=== PATIENT | female | born 1955 | race Caucasian/White ===

== ENCOUNTER → 2024-05-21 | Outpatient (CLI) | payer MEDICARE, BC, SELFPAY ==
[2024-05-21 15:45] LABS: Free T4 (Free Thyroxine) 1.25 ng/dL (0.89-1.76); Thyroid Stimulating Hormone 3.23 uIU/mL (0.55-4.78)
== END | disposition home or self-care (01) ==
LOC: COPL 14:24
PROVIDERS: PCP Family Medicine; Referring Provider Family Medicine; Visit Provider Family Medicine
DX: E03.9 Hypothyroidism, unspecified (principal); I10 Essential (primary) hypertension
CPT/HCPCS: 36415; 84439; 84443

== ENCOUNTER → 2024-07-15 | Outpatient (CLI) | payer MEDICARE, BC, SELFPAY ==
--- NOTE | 2024-07-15 15:30 | XR_ITS ---
Examination: Screening digital mammography, bilateral Computer aided detection 3-D breast Tomosynthesis, bilateral Date and time of exam: July 15, 2024 at 1527 hours Compared to mammograms dating to April 09, 2018 Indication: Screening, patient states bilateral breast itchiness one month Technique: Nonmagnified MLO, CC views of the breasts to been obtained, reconstructed from 3-D Tomosynthesis images. R2 computer aided detection program utilized for evaluation of suspicious masses and/or abnormal calcifications. 3-D Tomosynthesis images obtained. Findings: The breasts are heterogeneously dense, which may obscure small masses Benign calcifications No interval suspicious masses Impression: BI-RADS category II: Benign Findings. Recommend 1 year follow-up mammogram. Given the patient's presentation of bilateral breast itchiness, recommend bilateral breast sonography follow-up
== END | disposition home or self-care (01) ==
PROVIDERS: PCP Family Medicine; Referring Provider Family Medicine; Visit Provider Family Medicine
DX: Z12.31 Encounter for screening mammogram for malignant neoplasm of breast (principal); R92.323 Mammographic fibroglandular density, bilateral breasts; R92.1 Mammographic calcification found on diagnostic imaging of breast
CPT/HCPCS: 77063; 77067

== ENCOUNTER → 2024-08-20 | Outpatient (CLI) | payer MEDICARE, BC, SELFPAY ==
[2024-08-20 16:03] LABS: Free T4 (Free Thyroxine) 1.33 ng/dL (0.89-1.76); Thyroid Stimulating Hormone 1.92 uIU/mL (0.55-4.78)
== END | disposition home or self-care (01) ==
LOC: COPL 13:54
PROVIDERS: PCP Family Medicine; Referring Provider Family Medicine; Visit Provider Family Medicine
DX: E03.9 Hypothyroidism, unspecified (principal)
CPT/HCPCS: 36415; 84439; 84443

== ENCOUNTER → 2024-11-19 | Outpatient (CLI) | payer MEDICARE, BC, SELFPAY ==
[2024-11-19 10:15] LABS: Basophils % (Auto) 1 % (0-2.5); Eosinophils # (Auto) 0.2 Thou/mm3 (0.0-0.5); Eosinophils % (Auto) 3 % (0-10); Hematocrit 41.2 % (36.0-46.0); Hemoglobin 13.5 g/dL (12.0-16.0); Immature Granulocytes % (Auto) 0 % (0-0); Immature Granulocytes Auto 0.01 Thou/mm3 (0.00-0.00); Lymphocytes # (Auto) 1.3 Thou/mm3 (1.0-4.8); Lymphocytes % (Auto) 19 % (10-50); Mean Corpuscular HGB Conc 32.8 g/dl (31.0-37.0); Mean Corpuscular Hemoglobin 29.2 pg (25.0-35.0); Mean Corpuscular Volume 89 fL (80-100); Monocytes # (Auto) 0.6 Thou/mm3 (0.0-0.8); Monocytes % (Auto) 9 % (0-12); Neutrophils # (Auto) 4.5 Thou/mm3 (1.8-7.7); Neutrophils % (Auto) 68 % (37-80); Nucleated Red Blood Cell % 0 /100 WBC (0); Platelet Count 221 Thou/mm3 (140-440); RDW Standard Deviation 44.3 fL (36.4-46.3); Red Blood Count 4.62 Miln/mm3 (4.00-5.20); White Blood Count 6.6 Thou/mm3 (3.6-11.0)
[2024-11-19 10:45] LABS: Alanine Aminotransferase 20 U/L (10-49); Albumin, Serum 4.2 gm/dL (3.4-4.8); Albumin/Globulin Ratio 1.6 (1.2-2.2); Alkaline Phosphatase 72 U/L (46-116); Anion Gap 7 (7-16); Aspartate Amino Transferase 23 U/L (0-34); BUN/Creatinine Ratio 20 Ratio (12-20); Bilirubin,Total 0.6 mg/dL (0.3-1.2); Blood Urea Nitrogen 18 mg/dL (9-23); Calcium 9.1 mg/dL (8.3-10.6); Calcium (Corrected) 9.1 mg/dL (8.5-10.1); Carbon Dioxide 35.1 mMol/L (20.0-31.0); Cardiac Risk Estimate 2.4 RATIO (3.7-5.6); Chloride 100 mMol/L (98-107); Cholesterol 141 mg/dL (132-200); Creatinine (Component) 0.9 mg/dL (0.6-1.3); Free T4 (Free Thyroxine) 1.34 ng/dL (0.89-1.76); Globulin 2.7 gm/dL (2.3-3.5); Glucose 116 mg/dL (74-106); HDL Cholesterol 60 mg/dL (40-60); LDL Cholesterol,Calculated 68 mg/dL (0-130); Osmolality,Calculated 286 (275-295); Potassium 4.1 mMol/L (3.4-5.1); Sodium 142 mMol/L (136-145); Thyroid Stimulating Hormone 1.07 uIU/mL (0.55-4.78); Total Protein 6.9 gm/dL (5.7-8.2); Triglycerides 67 mg/dL (30-150); eGFR > 60 See Note
== END | disposition home or self-care (01) ==
LOC: COPL 09:13
PROVIDERS: PCP Family Medicine; Referring Provider Family Medicine; Visit Provider Family Medicine
DX: I10 Essential (primary) hypertension (principal); E03.9 Hypothyroidism, unspecified; E78.5 Hyperlipidemia, unspecified
CPT/HCPCS: 36415; 80053; 80061; 84439; 84443; 85025

== ENCOUNTER → 2025-06-13 | Outpatient (CLI) | payer MEDICARE, BC, SELFPAY ==
[2025-06-13 11:03] LABS: Glucose Estimated Average 126 mg/dL (80-131); Hemoglobin A1C 6.0 % Hgb (4.8-6.0)
[2025-06-13 11:10] LABS: Free T4 (Free Thyroxine) 1.21 ng/dL (0.89-1.76); Thyroid Stimulating Hormone 3.53 uIU/mL (0.55-4.78)
== END | disposition home or self-care (01) ==
LOC: COPL 09:38
PROVIDERS: PCP Family Medicine; Referring Provider Family Medicine; Visit Provider Family Medicine
DX: E03.9 Hypothyroidism, unspecified (principal); R73.03 Prediabetes
CPT/HCPCS: 36415; 83036; 84439; 84443

== ENCOUNTER 2025-06-23 10:23 | Inpatient (IN) | payer MEDICARE, BC, SELFPAY ==
[2025-06-23] VITALS (13 sets, daily range): BP systolic 99–136; BP diastolic 57–79; PULSE 82–118; RESP 16–87; TEMP 36.1–37.3; O2SAT 78–97; BMI 36.1
--- NOTE | 2025-06-23 10:38 | PD.EDSOB ---
ED SOB =RME/HPI General Chief Complaint: Shortness of Breath/Dyspnea Stated Complaint: COUGH FLU LIKE SYPTOMS, LOW 02 SATS Time Seen by Provider: 06/23/25 10:37 Arrival date/time: 06/23/25 10:23 RME / HPI RME / HPI Narrative: 70-year-old female coming in for evaluation of shortness of breath with hypoxia. States that she had a pneumonia in April of this year and does not feel that it resolved completely. Over the past week or 2 she has been having increased cough, tiredness, malaise. Was seen by her doctor and given prescription for azithromycin and Medrol Dosepak which she finished yesterday. Also having very mild sore throat. Notes that her oxygen levels at home have been low down to the 70s at times. Has been having wheezing and taking her albuterol inhaler every 3 hours for the past week or so. Past medical history significant for asthma, hypertension, hyperlipidemia, hypothyroidism. Denies any chest pain, abdominal pain, other acute symptoms at this time. Related Data Home Medications ?Medication ?Instructions ?Recorded ?Confirmed APIXABAN * (ELIQUIS *) 2.5 mg PO BID #0 tabs 02/28/16 Acetaminophen * (TYLENOL *) 1 tab PO Q4HR PRN PAIN #0 tabs 02/28/16 Fluticasone Propionate NASAL * 1 spry NASAL BID #0 spry 02/28/16 (FLONASE *) Hydrocodone/Acetaminophen * (NORCO 2 tab PO Q4H PRN PAIN #0 tabs 02/28/16 5/325 *) Levothyroxine * (SYNTHROID *) 100 mcg PO HS #0 tabs 02/28/16 conjugated estrogens 0.625 mg 0.625 mg PO EVERYOTHERDAY #0 tabs 02/28/16 tablet (Premarin) diphenhydramine HCl 25 mg capsule 50 mg PO Q4HR PRN ITCHING #0 caps 02/28/16 lisinopril 20 mg tablet 20 mg PO HS #0 tabs 02/28/16 simvastatin 10 mg tablet (Zocor) 10 mg PO HS #0 tabs 02/28/16 Previous Rx's ?Medication ?Instructions ?Recorded Sulfamethoxazole/Trimethoprim DS * 1 tab PO BID #14 tabs 02/28/16 (BACTRIM DS *) Promethazine Hcl/Dextromethorphan 1 tsp PO Q4-6HRPRN PRN COUGH OR 06/20/17 SYRUP * (PHENERGAN DM SYRUP *) CONGESTION #120 mL albuterol sulfate 90 mcg/actuation 1 - 2 puff inhalation Q6HR PRN 06/20/17 aerosol inhaler (ProAir HFA) WHEEZING #1 inh azithromycin 250 mg tablet 250 mg PO UD #6 tabs 06/20/17 (Zithromax) Allergies Allergy/AdvReac Type Severity Reaction Status Date / Time NKA* Allergy Uncoded 02/28/16 14:06 Review of Systems Review of Systems Systems Reviewed: All systems reviewed, normal except as documented Past Medical History Past Medical History Comments PMH COMMENT: Hypertension, hyperlipidemia, hypothyroidism, asthma ED Exam Narrative Physical exam: Constitutional: Awake, alert, nontoxic, obese, does not appear in acute distress HEENT: Normocephalic, atraumatic, extraocular movements intact. CV: Regular rate and rhythm, no murmurs/rubs/gallops Lungs: Generalized expiratory wheezing, hypoxia w sats at 88% on RA, productive cough noted. Abd: Soft, NT, ND, no HSM noted to palpation Extremities: No deformities, no edema noted blle. Neuro: AAOx3, no acute neuro deficit noted. Skin: Warm, dry, intact base, Course Course Course Narrative: 1202h: I called the hospitalist team, no answer. Will try calling back in a few minutes. Patient will be admitted for hypoxia with asthma exacerbation. 1215h: I spoke with hospitalist team for admission. Discussed patients PMHx, HPI, ED course, exam findings, labs, and radiology results. The hospitalist agree to accept the patient for admission. Quality Measures none Orders Category Date Time Status Bedside COVID-19 Antigen Test NOW Care 06/23/25 12:45 Active COVID-19 Screening Questionnaire NOW Care 06/23/25 12:04 Active Weight Count Operator NOW Care 06/23/25 10:55 Active Continuous Pulse Oximetry NOW Care 06/23/25 10:55 Completed Decision to Admit X1 Care 06/23/25 12:04 Completed EKG (ED ONLY) *Do not use* NOW Care 06/23/25 10:55 Completed Insert IV STAT Care 06/23/25 10:55 Active EKG (ED Only) Stat Exams 06/23/25 10:55 Ordered XR chest 1V portable Stat Exams 06/23/25 10:55 Completed ABG [Arterial Blood Gas] Stat Lab 06/23/25 13:10 Completed B-Type Natriuretic Peptide Stat Lab 06/23/25 11:10 Completed CBC Stat Lab 06/23/25 10:55 Completed Cocci Serology IgM with reflex to IgG [Cocci Serology, Lab 06/23/25 11:10 Results Unk History] Stat Cocci Serology, IgG Stat Lab 06/23/25 11:10 Results Comprehensive Metabolic Panel Stat Lab 06/23/25 10:55 Completed D-Dimer Stat Lab 06/23/25 11:10 Completed Influenza A & B Rapid Panel Stat Lab 06/23/25 13:23 Ordered Lactate (Lactic Acid) Stat Lab 06/23/25 11:10 Completed Magnesium Stat Lab 06/23/25 10:55 Completed Partial Thromboplastin Time Stat Lab 06/23/25 10:55 Completed Procalcitonin Stat Lab 06/23/25 10:55 Completed Prothrombin Time with INR Stat Lab 06/23/25 10:55 Completed RSV [Respiratory Syncytial Virus Ag] Stat Lab 06/23/25 13:23 Ordered ALBUTEROL RT 3ml [Proventil Rt 3ml] Med 06/23/25 10:55 Discontinued 7.5 mg INH X1 ONE Albuterol/Ipratr Rt Ranjana [Duoneb Rt Ranjana] Med 06/23/25 10:55 Discontinued 3 ml INH X1 ONE MethylPREDNISolone.* [SoluMEDROL Inj] Med 06/23/25 10:55 Discontinued 125 mg IV X1 ONE Oxygen Delivery NOW RT 06/23/25 10:55 Active Vital Signs Vital signs: Vital Signs Temperature 99.2 F 06/23/25 10:32 Pulse Rate 105 H 06/23/25 10:32 Respiratory Rate 20 06/23/25 10:32 Blood Pressure 136/76 H 06/23/25 10:32 Pulse Oximetry (%) 78 L 06/23/25 10:32 Oxygen Delivery Method Room Air 06/23/25 10:32 Shortness of Breath / Dyspnea MDM Narrative MDM Narrative:: 70-year-old female coming in for evaluation of shortness of breath. Noted to be tachycardic and hypoxic with mild hyperthermia of 99.2 on arrival. Labs and imaging ordered for further eval. chest x-ray revealing mild vascular congestion but otherwise no pneumonia or other acute abnormalities. Procalcitonin was normal, BNP negative, troponin negative, lactate normal, CO2 noted to be elevated on chemistry panel. Arterial blood gas was obtained with findings of normal pH and elevated pCO2 of 68 D-dimer and CBC normal. Patient was discussed with hospitalist team for admission for hypoxia and asthma exacerbation. Patient data External records reviewed:: [facility] previous records Clinical information provided by:: patient Social determinants that could affect healthcare access:: none Patient has the following chronic illnesses:: asthma, htn, hl How is presenting disease/condition affected by chronic disease/condition?: exacerbated by Evaluation data The following diagnostics were reviewed and interpreted by me:: lab results, radiology exam(s) and EKG tracing(s) (EKG @ 1123h, interpreted by me, normal sinus rhythm, rate 93, no STEMI. ) Lab and/or radiology exams considered but not ordered:: none Interpretation Summary: as noted Medications / Prescriptions Medications or Prescriptions considered but not ordered:: none Medication administrations:: Medication Administration History Acetaminophen (Acetaminophen 325 Mg Tablet) 650 mg PO Q6H PRN PRN Reason: Fever >100.4 Stop: 07/23/25 13:57 Acetaminophen (Acetaminophen 325 Mg Tablet) 650 mg PO Q6H PRN PRN Reason: PAIN SCALE 1-3 (mild Stop: 07/23/25 13:57 Albuterol/Ipratropium (Albuterol/Ipratropium (Duoneb) Rt Ranjana 3 Ml Nebu) 3 ml INH Q4HRRT [facility] Stop: 07/23/25 14:59 Last Admin: 06/23/25 15:15 Dose: 3 ml Documented By: JOSÉ LUIS Albuterol/Ipratropium (Albuterol/Ipratropium (Duoneb) Rt Ranjana 3 Ml Nebu) 3 ml INH Q2HR PRN PRN Reason: SOB or wheeze Stop: 07/23/25 15:59 Guaifenesin/Dextromethorphan (Guaifenesin/Dm 10 Ml Udc) 10 ml PO QID [facility]; Protocol Stop: 07/23/25 16:59 Heparin Sodium (Porcine) (Heparin Sod Inj 5000 Unit/Ml Vial) 5,000 unit SC Q8HR [facility] Stop: 07/07/25 13:59 Last Admin: 06/23/25 14:50 Dose: 5,000 unit Documented By: BREANA Co-signed By: DO Levothyroxine Sodium (Levothyroxine Sodium 100 Mcg Tablet) 100 mcg PO ACBR [facility] Stop: 07/24/25 05:59 Methylprednisolone Sodium Succinate (Methylprednisolone Sod Succ 40 Mg/Ml Vial) 40 mg IVP QDAY [facility] Stop: 07/01/25 08:59 Methylprednisolone Sodium Succinate (Methylprednisolone Sod Succ 40 Mg/Ml Vial) 40 mg IVP X1 [facility] Stop: 06/30/25 14:29 Discontinued Medications Albuterol (Albuterol Rt 2.5 Mg/3 Ml Nebu) 7.5 mg INH X1 ONE Stop: 06/23/25 10:56 Last Admin: 06/23/25 11:45 Dose: 7.5 mg Documented By: JOSÉ LUIS Albuterol/Ipratropium (Albuterol/Ipratropium (Duoneb) Rt Ranjana 3 Ml Nebu) 3 ml INH X1 ONE Stop: 06/23/25 10:56 Last Admin: 06/23/25 11:46 Dose: 3 ml Documented By: JOSÉ LUIS Furosemide (Furosemide Inj 10 Mg/Ml 4ml Vial) 40 mg IVP X1 ONE Stop: 06/23/25 14:27 Last Admin: 06/23/25 14:50 Dose: 40 mg Documented By: BREANA Magnesium Sulfate (Magnesium Sulfate Ivpb) 2 gm in 50 mls @ 120 mls/hr IV X1 ONE Stop: 06/23/25 14:54 Last Admin: 06/23/25 14:51 Dose: 120 mls/hr Documented By: BREANA Methylprednisolone Sodium Succinate (Methylprednisolone Sod Succ 62.5 Mg/Ml 2ml Vial) 125 mg IV X1 ONE Stop: 06/23/25 10:56 Last Admin: 06/23/25 11:11 Dose: 125 mg Documented By: BREANA See above Consultations Consultation(s) initiated? (list below): Yes Consultation #1 (Physician, Specialty, Details): As noted above Diagnosis Shortness of Breath Differential Diagnosis: acute exacerbation of chronic obstructive airways disease, congestive heart failure, community acquired pneumonia and asthma with exacerbation Most likely diagnosis given after review of the tests above:: Hypoxia Asthma exacerbation Admission Indicated Admission indicated?: indicated Admission Request Was there a request for admission?: Yes Admission Attestation Admission request attestation: Discussed case with [] from Hospitalist service regarding admission. Discussed patients ED course, exam findings, labs, and radiology results. The Hospitalist [agrees,declines] to accept the patient for admission. Disposition Plan Disposition Plan: Admit Discharge Plan Plan Patient Disposition: Admit Acute Care w/in Hospital Problem List Clinical Impression: Asthma exacerbation, Hypoxia
--- NOTE | 2025-06-23 10:55 | XR_ITS ---
EXAMINATION: AP chest single view TECHNIQUE: AP portable semiupright chest single view Date and time: June 23, 2025, 1142 hours INDICATION: Shortness of breath today. FINDINGS: Moderate elevation right hemidiaphragm Minimal prominence left ventricle Minor subsegmental atelectasis left lung. Mild vascular congestion. No lobar pneumonia or pulmonary edema Prominent osteopenia IMPRESSION: Minor subsegmental atelectasis left lower lung zone Mild vascular congestion No lobar pneumonia or pulmonary edema
--- NOTE | 2025-06-23 10:55 | EKG_ITS ---
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
[2025-06-23] MEDS: MethylPREDNISolone SOD SUCC 62.5 MG/ML 2ML VIAL 125 MG IV (11:11)
[2025-06-23 11:15] LABS: Lactate (Lactic Acid) 1.1 mMol/L (0.4-2.0)
[2025-06-23 11:16] LABS: Basophils # (Auto) 0.0 Thou/mm3 (0.0-0.2); Basophils % (Auto) 0 % (0-2.5); Eosinophils # (Auto) 0.2 Thou/mm3 (0.0-0.5); Eosinophils % (Auto) 3 % (0-10); Hematocrit 45.5 % (36.0-46.0); Hemoglobin 13.9 g/dL (12.0-16.0); Immature Granulocytes Auto 0.03 Thou/mm3 (0.00-0.00); Lymphocytes # (Auto) 1.6 Thou/mm3 (1.0-4.8); Lymphocytes % (Auto) 22 % (10-50); Mean Corpuscular HGB Conc 30.5 g/dl (31.0-37.0); Mean Corpuscular Hemoglobin 28.1 pg (25.0-35.0); Mean Corpuscular Volume 92 fL (80-100); Monocytes # (Auto) 0.6 Thou/mm3 (0.0-0.8); Monocytes % (Auto) 8 % (0-12); Neutrophils # (Auto) 5.1 Thou/mm3 (1.8-7.7); Neutrophils % (Auto) 67 % (37-80); Nucleated Red Blood Cell # 0.00 Thou/mm3 (0.00-0.00); Nucleated Red Blood Cell % 0 /100 WBC (0); Platelet Count 216 Thou/mm3 (140-440); RDW Standard Deviation 47.6 fL (36.4-46.3); Red Blood Count 4.94 Miln/mm3 (4.00-5.20); White Blood Count 7.6 Thou/mm3 (3.6-11.0)
[2025-06-23 11:32] LABS: D-Dimer < 250 ng/mL (<600)
[2025-06-23 11:37] LABS: B-Type Natriuretic Peptide < 20 pg/mL (0-100)
[2025-06-23 11:45] LABS: Alanine Aminotransferase 23 U/L (10-49); Albumin, Serum 3.9 gm/dL (3.4-4.8); Albumin/Globulin Ratio 1.3 (1.2-2.2); Alkaline Phosphatase 89 U/L (46-116); Anion Gap 6 (7-16); Aspartate Amino Transferase 23 U/L (0-34); BUN/Creatinine Ratio 22 Ratio (12-20); Bilirubin,Total 0.3 mg/dL (0.3-1.2); Blood Urea Nitrogen 22 mg/dL (9-23); Calcium 9.0 mg/dL (8.3-10.6); Calcium (Corrected) 9.1 mg/dL (8.5-10.1); Carbon Dioxide 39.5 mMol/L (20.0-31.0); Chloride 97 mMol/L (98-107); Creatinine (Component) 1.0 mg/dL (0.6-1.3); Estimated Creatinine Clearance 70.6 mL/min (>60); Globulin 3.1 gm/dL (2.3-3.5); Glucose 134 mg/dL (74-106); Magnesium 2.0 mg/dL (1.6-2.6); Osmolality,Calculated 288 (275-295); Potassium 4.0 mMol/L (3.4-5.1); Procalcitonin < 0.04 ng/ml (0.0-0.49); Sodium 142 mMol/L (136-145); Total Protein 7.0 gm/dL (5.7-8.2); eGFR > 60 See Note
[2025-06-23] MEDS: ALBUTEROL RT 2.5 MG/3 ML NEBU 7.5 MG INH (11:45)
[2025-06-23] MEDS: ALBUTEROL/IPRATROPIUM (Duoneb) RT SOL 3 ML NEBU INH ×3 (11:46→22:00)
[2025-06-23 11:50] LABS: INR 1.0 (0.9-1.3); Partial Thromboplastin Time 26.2 Seconds (22.0-36.0); Prothrombin Time 11.0 Seconds (9.0-12.2)
[2025-06-23 13:16] LABS: Base Excess 10 (-3-3); HCO3 38 mEq/L (20-26); Inspired O2, VO2 Liters 3 L/min; Inspired Oxygen, FIO2 21 %; O2 Saturation 96 % (91-98); PCO2 68 mmHg (32.0-48.0); PO2 81 mmHg (83-108); pH, Arterial 7.36 (7.35-7.45)
[2025-06-23 13:17] LABS: Allen Test Performed/OK; Puncture Site Right Brachial
--- NOTE | 2025-06-23 13:55 | ECHO_ITS ---
Patient Info Name: Kelsey De La Cruz Age: 70 years : 1955 Gender: Female Ht: 175 cm Wt: 111 kg BSA: 2.37 m2 BP: 117 / 79 mmHg HR: 97 bpm Exam Date: 06/23/2025 2:39 PM Admit Date: 06/23/2025 Site: [facility] Room Number: ER Patient Status: I Technical Quality: Poor Exam Type: CA echo doppler complete Reason for Poor Study: poor echocardiographic windows, poor patient cooperation, body habitus Computer Architect: Naomy Benítez Ordering Physician: Gilmar Souza Study Info Indications cardiac workup - Primary Location: [facility] Left Ventricular Outflow Tract Name Value Normal LVOT 2D LVOT Diameter 2.0 cm LVOT Doppler LVOT Peak Velocity 99 cm/s LVOT Mean Gradient 2 mmHg LVOT VTI 18 cm LVOT VTI/AV VTI Ratio 0.7 LVOT Stroke Volume 56 ml Pulmonic Valve Name Value Normal PV Doppler PV Peak Velocity 79 cm/s Mitral Valve Name Value Normal MV Doppler MV Mean Gradient 2 mmHg MV Decel Stanton 748 cm/s2 MV PHT 45 ms MV Area (PHT) 4.9 cm2 4.0-5.0 MV Area (Cont Eq VTI) 2.4 cm2 MV Diastolic Function MV E Peak Velocity 116 cm/s MV A Peak Velocity 28 cm/s MV E/A 4.1 MV Annular TDI MV Septal e' Velocity 13.8 cm/s MV E/e' (Septal) 8.4 MV Lateral e' Velocity 12.5 cm/s MV E/e' (Lateral) 9.3 MV e' Average 13.15 cm/s MV E/e' (Average) 8.8 Tricuspid Valve Name Value Normal Estimated PAP/RSVP RA Pressure 3 mmHg <=5 Aortic Valve Name Value Normal AV Doppler AV Peak Velocity 151 cm/s AV Mean Gradient 4 mmHg AV VTI 27 cm AV Area (Cont Eq VTI) 2.1 cm2 >=3.0 AV Area (Cont Eq Chandu) 2.1 cm2 AV DI (Chandu) 0.66 AV Regurgitation 2D LVOT Area 3.1 cm2 Ventricles Name Value Normal LV Dimensions 2D/MM IVS Diastolic Thickness (2D) 1.1 cm 0.6-0.9 LVID Diastole (2D) 4.2 cm 3.8-5.2 LVIW Diastolic Thickness (2D) 1.0 cm 0.6-0.9 LVID Systole (2D) 3.0 cm 2.2-3.5 LVOT Diameter 2.0 cm LV Mass (2D Cubed) 147.00 g 67.00-162.00 LV Mass Index (2D Cubed) 62 g/m2 43-95 Relative Wall Thickness (2D) 0.48 <=0.42 IVS/LVIW Diastolic Thickness (2D) 1.10 0.00-1.50 LV Fractional Shortening/Ejection Fraction 2D/MM LV Fractional Shortening (2D) 29 % 27-45 LV EF (2D Teichholz) 55 % Left Ventricle Left ventricular chamber dimension is normal. Left ventricular systolic function is normal with visually estimated ejection fraction of 50-55%. There is mild concentric hypertrophy noted in the left ventricle. Left ventricular segmental wall motion is normal. There is indeterminate diastolic function in the left ventricle. Right Ventricle Right ventricle is not well visualized. Left Atrium Left atrium was not well visualized. Right Atrium Right atrium was not well visualized. Aortic Valve Aortic valve is not well visualized. There is no aortic valve stenosis with a peak velocity of 151 cm/s, mean gradient of 4 mmHg, and aortic valve area of 2.1 cm2. Pulmonic Valve Pulmonic Valve not well visualized. Mitral Valve Mitral valve is not well visualized. There is trace mitral valve regurgitation. Tricuspid Valve The tricuspid valve is not well visualized. Unable to estimate pulmonary artery systolic pressure due to inadequate tricuspid regurgitant envelope. Pericardium/Pleural The pericardium appears normal. There is no pericardial effusion. No pleural effusion visualized. Inferior Vena Cava Normal inferior vena cava with >50% collapse upon inspiration consistent with normal right atrial pressure, 3 mmHg. Aorta The aortic measurements are indexed to age and body surface area. The aortic root at the sinus of Valsalva is not well visualized. The prox ascending aorta is not well visualized. Summary 1. Poor quality study and suboptimal images. 2. Left ventricle size is normal and systolic function is normal. Estimated ejection fraction is 50-55%. There is indeterminate diastolic function. There is mild concentric hypertrophy noted. 3. The right ventricle, left atrium and right atrium is not well visualized. 4. There is trace mitral valve regurgitation. Report Signatures Finalized by Clyde Yu on 06/23/2025 08:05 PM
--- NOTE | 2025-06-23 14:04 | PD.RESHP ---
Documentation for date of: 06/23/25 HPI History of Present Illness Chief complaint: Shortness of breath History of present illness: History of present illness: Patient is a 70 yo F with PMH of asthma, HTN, HLD, hypothyroidism presenting to the ED on 06/22/25 for worsening cough, malaise, muscle aches, shortness of breath. She had walking pneumonia back in April 2025, for which she received antibiotics, which helped somewhat but did not get her back to baseline. For about 1 week, her symptoms have been getting significantly worse, so that she is much more tired. Endorses coughing spells, muscle aches, and tiredness. ED course: CXR negative for pneumonia. Influenza A/B negative, RSV positive. Patient O2 on admission 78; placed on NC, last O2 was 93 on 5L NC. Patient was admitted on 06/22/25 for management of shortness of breath. PMH: HLD, HTN, hypothryoidism, cataracts, asthma PSH: C-sections, cholecystectomy, L hip replacement, oral surgery (1973 and 2018), wrist cyst removal, cataract surgery, tonsillectomy Allergies: NKDA Social history: No EtoH, tobacco, or drug use Review of Systems Review of Systems Narrative Review of Systems: General: Endorses significant malaise HEENT: Endorses nasal congestion Heart: Endorses chest pain Lungs: Endorses shortness of breath and significant cough Abdomen: Denies diarrhea, nausea or vomiting, constipation, BRBPR, melena Genitourinary: Denies frequency, urgency, dysuria, hematuria Musculoskeletal: Endorses musculoskeletal aches and pains Neurology: Denies numbness, tingling ROS otherwise negative except what is mentioned above. Exam Vital Signs Temp Pulse Resp BP Pulse Ox O2 Del Method O2 Flow Rate 98.2 F 97 17 117/79 93 L Nasal Cannula 5 06/23/25 13:30 06/23/25 13:30 06/23/25 13:30 06/23/25 13:30 06/23/25 13:30 06/23/25 13:30 06/23/25 13:30 Narrative Exam General: A/O x3, no acute distress, well-nourished, well-developed Eyes: PERRL, EOMI. Anicteric, vision grossly intact. Ears: No ear pain, no ear discharge, Hearing grossly intact. Nose: Signficant nasal discharge. Mouth/Throat: Moist mucous membranes, no redness, no lesions. Neck: Neck supple, non-tender, no cervical lymphadenopathy. Lungs: significant bilateral wheezing, No accessory muscle use. Cardio: Normal S1/S2, regular rhythm, no murmurs, no JVD or carotid bruits. Abdomen: Soft, non-tender, no palpable masses, peristalsis present, no guarding or rebound. Extremities: Symmetrical, no significant deformities, no peripheral edema , non-tender, peripheral pulses present. Skin: No rashes, no lesions, warm to touch. Neuro: No focal neurological deficits. Psych: Cooperative, appropriate mood and effect. Results: Labs 06/24/25 05:50 06/24/25 05:50 Labs: Short CBC 06/23/25 Range/Units 10:55 WBC 7.6 (3.6-11.0) Thou/mm3 Hgb 13.9 (12.0-16.0) g/dL Hct 45.5 (36.0-46.0) % Plt Count 216 (140-440) Thou/mm3 BMP 06/23/25 10:55 Sodium 142 Potassium 4.0 Chloride 97 L Carbon Dioxide 39.5 H BUN 22 Creatinine 1.0 Glucose 134 H Calcium 9.0 Liver Function 06/23/25 Range/Units 10:55 Total Bilirubin 0.3 (0.3-1.2) mg/dL AST 23 (0-34) U/L ALT 23 (10-49) U/L Alkaline Phosphatase 89 (46-116) U/L Albumin 3.9 (3.4-4.8) gm/dL ABG Interpretation ABG results: 06/23/25 13:10 ABG pH 7.36 ABG pCO2 68 H ABG pO2 81 L ABG HCO3 38 H ABG O2 Saturation 96 ABG Base Excess 10 H Quality Measures Quality Measures none Advance care planning discussed with:: other Medications Home Medications and Allergies Home Medications ?Medication ?Instructions ?Recorded ?Confirmed ?Type Fluticasone Propionate NASAL * 1 spry NASAL BID #0 spry 02/28/16 06/23/25 History (FLONASE *) Levothyroxine * (SYNTHROID *) 100 mcg PO HS #0 tabs 02/28/16 06/23/25 History simvastatin 10 mg tablet (Zocor) 10 mg PO HS #0 tabs 02/28/16 06/23/25 History celecoxib 200 mg capsule 200 mg PO BID 06/23/25 06/23/25 History cyclosporine 0.05 % eye drops 1 drp ophthalmic (eye) Q12H 06/23/25 06/23/25 History (Restasis MultiDose) losartan 100 1 tab PO HS 06/23/25 06/23/25 History mg-hydrochlorothiazide 25 mg tablet tizanidine 2 mg tablet 2 mg PO PRN pain 06/23/25 06/23/25 History benzonatate 200 mg capsule 200 mg PO Q8HR PRN persistent cough 06/24/25 06/24/25 History Allergies Allergy/AdvReac Type Severity Reaction Status Date / Time No Known Allergies Allergy Verified 06/23/25 19:18 Visit Medications Acetaminophen (Acetaminophen 325 Mg Tablet) 650 mg PO Q6H PRN PRN Reason: Fever >100.4 Stop: 07/23/25 13:57 Acetaminophen (Acetaminophen 325 Mg Tablet) 650 mg PO Q6H PRN PRN Reason: PAIN SCALE 1-3 (mild Stop: 07/23/25 13:57 Heparin Sodium (Porcine) (Heparin Sod Inj 5000 Unit/Ml Vial) 5,000 unit SC Q8HR AQUILES Stop: 07/07/25 13:59 Discontinued Medications Albuterol (Albuterol Rt 2.5 Mg/3 Ml Nebu) 7.5 mg INH X1 ONE Stop: 06/23/25 10:56 Last Admin: 06/23/25 11:45 Dose: 7.5 mg Albuterol/Ipratropium (Albuterol/Ipratropium (Duoneb) Rt Ranjana 3 Ml Nebu) 3 ml INH X1 ONE Stop: 06/23/25 10:56 Last Admin: 06/23/25 11:46 Dose: 3 ml Methylprednisolone Sodium Succinate (Methylprednisolone Sod Succ 62.5 Mg/Ml 2ml Vial) 125 mg IV X1 ONE Stop: 06/23/25 10:56 Last Admin: 06/23/25 11:11 Dose: 125 mg Assessment & Plan Plan Patient is a 70 yo F with PMH of asthma, HTN, HLD, hypothyroidism presenting to the ED on 06/22/25 for worsening cough, malaise, muscle aches, shortness of breath. Patient was admitted on 06/22/25 for management of shortness of breath. #Acute hypoxic respiratory failure secondary to #Asthma exacerbation and #RSV infection Patient had walking pneumonia back in April 2025, but is not back to baseline. For about 1 week, symptoms have been getting significantly worse. Endorses coughing spells, muscle aches, and tiredness. Influenza A/B negative; RSV positive CXR negative for pneumonia. BNP < 20. Patient does endorse occasional leg swelling with some foods. Plan: DuoNebs q2h prn methylprednisiolone 40mg qday Echo ordered for potential CHF contribution (if CHF present) guaifenesin 10m qid Monitor O2 closely #hx of Hypothyroidism Patient has history of hypothryoidism since her 40s. Plan: Restart home levothyroxine 100mcg #Hx of HTN Patient has history of hypertension. BP on admission: 136/76 Plan: Trend BP for now #Hx of HLD Patient has history of hyperlipidemia. Plan: Lipid panel in AM Disposition: Admitted for SOB workup DVT prophylaxis: heparin 5000 q8 GI prophylaxis: Diet: Regular Lines: PIV CODE STATUS: Full This case was discussed with my attending physician, Dr. Talavera, and senior resident, Dr. Merchant. Gilmar Souza, PGY1 Senior Resident Attestation: The patient is a 70-year-old female with significant past medical history of asthma, hypertension, hyperlipidemia, hypothyroidism presented to ED on 06/23/2025, with chief complaint of worsening of SOB for past couple of days. The patient reported that she had walking pneumonia about 2 months ago, and after that she never felt okay, and recently it was worsening further, and today she called her PCP, and was sent to ED for oxygen saturation in 80s. The patient also admitted HEARD, orthopnea, but denied any chest pain, palpitation, PND. Physical examination was significant for expiratory wheeze throughout the lung field. The patient was positive for RSV, negative for influenza and COVID 19. The patient was given DuoNeb in the ED, IV methylprednisone, and admitted to telemetry unit for further management of acute hypoxic respiratory failure likely secondary to asthma exacerbation 2/2 RSV infection, associated with possible new onset CHF. Will continue the patient on DuoNeb, TTE was ordered for possible CHF, and will continue with DuoNeb and IV methylprednisone. I discussed with and supervised the wedding planning internship physician involved in the care of this patient. I personally saw and examined the patient and discussed the assessment and plan with the entire medicine team, including my attending. I agree with the assessment and plan as documented above. Jacinto Merchant MD PGY3 Internal Medicine Attending Provider Attestation/Addendum I have seen and examined the patient. I was physically present for the patel portions of the services provided including history, physical exam, diagnosis, treatment plans and orders. I agree with assessment and plan of care as documented by residents. After examination of the patient and review of the clinical data I feel that this patient needs admission to the hospital for further treatment/evaluation. Even though this this note was carefully revised there may still be minor errors in water supervisor due to voice recognition software. Becky Talavera MD
[2025-06-23 14:19] LABS: Cocci Serology, IgM Negative (Negative)
--- NOTE | 2025-06-23 14:30 | EKG_ITS ---
[facility] Test Date: 2025-06-23 Pat Name: HUI SALGUERO Department: Room: [facility] Gender: Female [place] Gauger: : 1955 Requested By: Becky Talavera Order Number: [id number] Reading MD: Becky Talavera Measurements Intervals [place] Rate: 93 P: 40 CT: 141 QRS: 53 QRSD: 89 T: 54 QT: 335 QTc: 417 Interpretive Statements SINUS RHYTHM INDETERMINATE AXIS LOW QRS VOLTAGE IN PRECORDIAL LEADS [QRS DEFLECTION < 1.0 mV IN CHEST LEADS] POSSIBLE ANTERIOR MYOCARDIAL INFARCTION , PROBABLY OLD [30 ms Q WAVE IN V3/V4, OR R < 0.2 mV IN V4] Compared to ECG 06/23/2025 11:22:24 Indeterminate axis now present Myocardial infarct finding still present /store/S0/[id number]/ecg/[id number].pdf
[2025-06-23] MEDS: HEPARIN SOD INJ 5000 UNIT/ML VIAL SC ×2 (14:50→21:21)
[2025-06-23] MEDS: FUROSEMIDE INJ 10 MG/ML 4ML VIAL 40 MG IVP (14:50)
[2025-06-23] MEDS: Magnesium Sulfate 2 GM Ivpb 2 GM/50 ML BAG IV (14:51)
[2025-06-23 15:22] LABS: Troponin I < 0.020 ng/mL (0.0-0.045)
[2025-06-23] MEDS: guaiFENesin/DM 10 ML UDC PO ×2 (17:34→20:33)
[2025-06-24] VITALS (12 sets, daily range): BP systolic 120–133; BP diastolic 71–81; PULSE 78–112; RESP 12–20; TEMP 35.9–36.3; O2SAT 91–98; BMI 38.5
[2025-06-24] MEDS: ALBUTEROL/IPRATROPIUM (Duoneb) RT SOL 3 ML NEBU INH ×6 (02:11→23:23)
[2025-06-24] MEDS: LEVOTHYROXINE SODIUM 100 MCG TABLET PO (05:18)
[2025-06-24] MEDS: HEPARIN SOD INJ 5000 UNIT/ML VIAL SC ×3 (05:18→21:36)
[2025-06-24] MEDS: guaiFENesin/DM 10 ML UDC PO ×4 (05:23→19:53)
[2025-06-24 06:29] LABS: Basophils # (Auto) 0.0 Thou/mm3 (0.0-0.2); Basophils % (Auto) 0 % (0-2.5); Eosinophils # (Auto) 0.0 Thou/mm3 (0.0-0.5); Eosinophils % (Auto) 0 % (0-10); Hematocrit 42.9 % (36.0-46.0); Hemoglobin 13.4 g/dL (12.0-16.0); Immature Granulocytes Auto 0.02 Thou/mm3 (0.00-0.00); Lymphocytes # (Auto) 1.2 Thou/mm3 (1.0-4.8); Lymphocytes % (Auto) 12 % (10-50); Mean Corpuscular HGB Conc 31.2 g/dl (31.0-37.0); Mean Corpuscular Hemoglobin 28.3 pg (25.0-35.0); Mean Corpuscular Volume 91 fL (80-100); Monocytes # (Auto) 0.6 Thou/mm3 (0.0-0.8); Monocytes % (Auto) 7 % (0-12); Neutrophils # (Auto) 7.7 Thou/mm3 (1.8-7.7); Neutrophils % (Auto) 81 % (37-80); Nucleated Red Blood Cell # 0.00 Thou/mm3 (0.00-0.00); Nucleated Red Blood Cell % 0 /100 WBC (0); Platelet Count 223 Thou/mm3 (140-440); RDW Standard Deviation 45.0 fL (36.4-46.3); Red Blood Count 4.73 Miln/mm3 (4.00-5.20); White Blood Count 9.6 Thou/mm3 (3.6-11.0)
[2025-06-24 06:50] LABS: Alanine Aminotransferase 23 U/L (10-49); Albumin, Serum 4.3 gm/dL (3.4-4.8); Albumin/Globulin Ratio 1.5 (1.2-2.2); Alkaline Phosphatase 85 U/L (46-116); Anion Gap 8 (7-16); Aspartate Amino Transferase 25 U/L (0-34); BUN/Creatinine Ratio 25 Ratio (12-20); Bilirubin,Total 0.2 mg/dL (0.3-1.2); Blood Urea Nitrogen 25 mg/dL (9-23); Calcium 8.7 mg/dL (8.3-10.6); Calcium (Corrected) 8.7 mg/dL (8.5-10.1); Carbon Dioxide 37.4 mMol/L (20.0-31.0); Cardiac Risk Estimate 2.8 RATIO (3.7-5.6); Chloride 94 mMol/L (98-107); Cholesterol 176 mg/dL (132-200); Creatinine (Component) 1.0 mg/dL (0.6-1.3); Estimated Creatinine Clearance 72.8 mL/min (>60); Globulin 2.9 gm/dL (2.3-3.5); Glucose 177 mg/dL (74-106); HDL Cholesterol 62 mg/dL (40-60); LDL Cholesterol,Calculated 95 mg/dL (0-130); Magnesium 2.3 mg/dL (1.6-2.6); Osmolality,Calculated 285 (275-295); Phosphorous 3.9 mg/dL (2.4-5.1); Potassium 3.7 mMol/L (3.4-5.1); Sodium 139 mMol/L (136-145); Total Protein 7.2 gm/dL (5.7-8.2); Triglycerides 93 mg/dL (30-150); eGFR > 60 See Note
--- NOTE | 2025-06-24 11:25 | PD.RESPRO ---
Documentation for date of: 06/24/25 Subjective Subjective Interval history: Patient seen and examined at bedside; no acute events overnight. Required up to 5L O2 to maintain saturation above 90%, and is feeling worse today, though she is expelling more phlegm when coughing. Echo showed EF 50-55%; no clinical symptoms indicating CHF. Exam Vital Signs Temp Pulse Resp BP Pulse Ox O2 Del Method O2 Flow Rate 96.6 F L 98 12 128/72 95 Nasal Cannula 4 06/24/25 08:00 06/24/25 08:00 06/24/25 08:00 06/24/25 08:00 06/24/25 08:00 06/24/25 08:00 06/24/25 08:00 Narrative Exam General: A/O x3, no acute distress, well-nourished, well-developed Eyes: PERRL, EOMI. Anicteric, vision grossly intact. Ears: No ear pain, no ear discharge, Hearing grossly intact. Nose: Signficant nasal discharge. Mouth/Throat: Moist mucous membranes, no redness, no lesions. Neck: Neck supple, non-tender, no cervical lymphadenopathy. Lungs: still bilateral wheezing, No accessory muscle use. Cardio: Normal S1/S2, regular rhythm, no murmurs, no JVD or carotid bruits. Abdomen: Soft, non-tender, no palpable masses, peristalsis present, no guarding or rebound. Extremities: Symmetrical, no significant deformities, no peripheral edema , non-tender, peripheral pulses present. Skin: No rashes, no lesions, warm to touch. Neuro: No focal neurological deficits. Psych: Cooperative, appropriate mood and effect. Objective Labs 06/24/25 05:50 06/24/25 05:50 Labs: Laboratory Results - last 24 hr 06/23/25 06/23/25 06/23/25 10:55 11:10 13:10 WBC 7.6 RBC 4.94 Hgb 13.9 Hct 45.5 MCV 92 MCH 28.1 MCHC 30.5 L RDW Std Deviation 47.6 H Plt Count 216 Neut % (Auto) 67 Lymph % (Auto) 22 [place] % (Auto) 8 Eos % (Auto) 3 Baso % (Auto) 0 Neut # (Auto) 5.1 Lymph # (Auto) 1.6 [place] # (Auto) 0.6 Eos # (Auto) 0.2 Baso # (Auto) 0.0 Immature Gran # (Auto) 0.03 H Absolute Nucleated RBC 0.00 Immature Gran % 0 Nucleated RBC % 0 PT 11.0 INR 1.0 APTT 26.2 D-Dimer < 250 Puncture Site Right Brachial ABG pH 7.36 ABG pCO2 68 H ABG pO2 81 L ABG HCO3 38 H ABG O2 Saturation 96 ABG Base Excess 10 H Oxygen Liter Flow 3 FiO2 21 Sodium 142 Potassium 4.0 Chloride 97 L Carbon Dioxide 39.5 H Anion Gap 6 L BUN 22 Creatinine 1.0 Estim Creat Clear Calc 70.6 eGFR > 60 BUN/Creatinine Ratio 22 H Glucose 134 H Calculated Osmolality 288 Calcium 9.0 Corrected Calcium 9.1 Phosphorus Magnesium 2.0 Total Bilirubin 0.3 AST 23 ALT 23 Alkaline Phosphatase 89 Troponin I < 0.020 B-Natriuretic Peptide < 20 Total Protein 7.0 Albumin 3.9 Globulin 3.1 Albumin/Globulin Ratio 1.3 Triglycerides Cholesterol LDL Cholesterol, Calc HDL Cholesterol Cholesterol/HDL Ratio Procalcitonin < 0.04 Coccidioides IgM Ab Negative 06/24/25 05:50 WBC 9.6 RBC 4.73 Hgb 13.4 Hct 42.9 MCV 91 MCH 28.3 MCHC 31.2 RDW Std Deviation 45.0 Plt Count 223 Neut % (Auto) 81 H Lymph % (Auto) 12 [place] % (Auto) 7 Eos % (Auto) 0 Baso % (Auto) 0 Neut # (Auto) 7.7 Lymph # (Auto) 1.2 [place] # (Auto) 0.6 Eos # (Auto) 0.0 Baso # (Auto) 0.0 Immature Gran # (Auto) 0.02 H Absolute Nucleated RBC 0.00 Immature Gran % 0 Nucleated RBC % 0 PT INR APTT D-Dimer Puncture Site ABG pH ABG pCO2 ABG pO2 ABG HCO3 ABG O2 Saturation ABG Base Excess Oxygen Liter Flow FiO2 Sodium 139 Potassium 3.7 Chloride 94 L Carbon Dioxide 37.4 H Anion Gap 8 BUN 25 H Creatinine 1.0 Estim Creat Clear Calc 72.8 eGFR > 60 BUN/Creatinine Ratio 25 H Glucose 177 H Calculated Osmolality 285 Calcium 8.7 Corrected Calcium 8.7 Phosphorus 3.9 Magnesium 2.3 Total Bilirubin 0.2 L AST 25 ALT 23 Alkaline Phosphatase 85 Troponin I B-Natriuretic Peptide Total Protein 7.2 Albumin 4.3 Globulin 2.9 Albumin/Globulin Ratio 1.5 Triglycerides 93 Cholesterol 176 LDL Cholesterol, Calc 95 HDL Cholesterol 62 H Cholesterol/HDL Ratio 2.8 L Procalcitonin Coccidioides IgM Ab ABG Interpretation ABG results: 06/23/25 13:10 ABG pH 7.36 ABG pCO2 68 H ABG pO2 81 L ABG HCO3 38 H ABG O2 Saturation 96 ABG Base Excess 10 H Quality Measures Quality Measures none Advance care planning discussed with:: other Assessment & Plan Assessment Current Active Medications: Generic Name Dose Route Start Last Admin Trade Name Freq PRN Reason Stop Dose Admin Acetaminophen 650 mg 06/23/25 13:58 Acetaminophen 325 Mg Tablet PO 07/23/25 13:57 Q6H PRN Fever >100.4 Acetaminophen 650 mg 06/23/25 13:58 Acetaminophen 325 Mg Tablet PO 07/23/25 13:57 Q6H PRN PAIN SCALE 1-3 (mild Albuterol/Ipratropium 3 ml 06/23/25 15:00 06/24/25 06:36 Albuterol/Ipratropium (Duoneb) Rt Ranjana 3 Ml Nebu INH 07/23/25 14:59 3 ml Q4HRRT AQUILES Administration Albuterol/Ipratropium 3 ml 06/23/25 14:26 Albuterol/Ipratropium (Duoneb) Rt Ranjana 3 Ml Nebu INH 07/23/25 15:59 Q2HR PRN SOB or wheeze Guaifenesin/Dextromethorphan 10 ml 06/23/25 17:00 06/24/25 05:23 Guaifenesin/Dm 10 Ml Udc PO 07/23/25 16:59 10 ml QID AQUILES Administration Protocol Heparin Sodium (Porcine) 5,000 unit 06/23/25 14:00 06/24/25 05:18 Heparin Sod Inj 5000 Unit/Ml Vial SC 07/07/25 13:59 5,000 unit Q8HR AQUILES Administration Levothyroxine Sodium 100 mcg 06/24/25 06:00 06/24/25 05:18 Levothyroxine Sodium 100 Mcg Tablet PO 07/24/25 05:59 100 mcg ACBR AQUILES Administration Methylprednisolone Sodium Succinate 40 mg 06/24/25 09:00 06/24/25 08:31 Methylprednisolone Sod Succ 40 Mg/Ml Vial IVP 07/01/25 08:59 40 mg QDAY AQUILES Administration Plan Patient is a 70 yo F with PMH of asthma, HTN, HLD, hypothyroidism presenting to the ED on 06/22/25 for worsening cough, malaise, muscle aches, shortness of breath. Patient was admitted on 06/22/25 for management of shortness of breath. #Acute hypoxic respiratory failure secondary to #Asthma exacerbation and #RSV infection Patient had walking pneumonia back in April 2025, but is not back to baseline. For about 1 week, symptoms have been getting significantly worse. Endorses coughing spells, muscle aches, and tiredness. Influenza A/B negative; RSV positive CXR negative for pneumonia. BNP < 20. Patient does endorse occasional leg swelling with some foods. Echo showed EF 50-55%; no clinical symptoms indicating CHF, BNP normal, no leg swelling. Plan: DuoNebs q2h prn methylprednisiolone 40mg qday guaifenesin 10m qid Monitor O2 closely Chest physiotherapy #Hx of Hypothyroidism Patient has history of hypothryoidism since her 40s. Plan: Restart home levothyroxine 100mcg #Hx of HTN Patient has history of hypertension. BP on admission: 136/76 BP today: 133/81 Plan: Trend BP for now Follow up outpatient with cardiology #Hx of HLD Patient has history of hyperlipidemia. Plan: Lipid panel in AM Disposition: Telemetry DVT prophylaxis: heparin 5000 q8 GI prophylaxis: Diet: Regular Lines: PIV CODE STATUS: Full This case was discussed with my attending physician, Dr. Talavera, and senior resident, Dr. Merchant. Gilmar Souza, PGY1 Senior Resident Attestation: The patient was still short of breath this morning, and was saturating 94 to 96% on 3 L NC, we tried tapering down oxygen requirement to 1 L, but she was desaturating to 80s, and we increased the oxygen to 4 L via NC. She was started on chest physiotherapy, and she is compliant with a [place]. Will continue with DuoNeb, IV methylprednisone for now. Expected to be discharged home by tomorrow with home oxygen. I discussed with and supervised the pharmacy intern physician involved in the care of this patient. I personally saw and examined the patient and discussed the assessment and plan with the entire medicine team, including my attending. I agree with the assessment and plan as documented above. Jacinto Merchant MD PGY3 Internal Medicine Attending Provider Attestation/Addendum I have seen and examined the patient. I was physically present for the patel portions of the services provided including history, physical exam, diagnosis, treatment plans and orders. I agree with assessment and plan of care as documented by residents. Even though this this note was carefully revised there may still be minor errors in ship construction teacher due to voice recognition software. Becky Talavera MD
[2025-06-24 13:38] LABS: Cocci Serology, IgG Negative (Negative)
[2025-06-25] VITALS (8 sets, daily range): BP systolic 122–144; BP diastolic 68–86; PULSE 78–102; RESP 14–22; TEMP 35.9–36.7; O2SAT 90–96; BMI 38.5
[2025-06-25] MEDS: ALBUTEROL/IPRATROPIUM (Duoneb) RT SOL 3 ML NEBU INH ×3 (02:46→11:59)
[2025-06-25 05:40] LABS: Basophils # (Auto) 0.0 Thou/mm3 (0.0-0.2); Basophils % (Auto) 0 % (0-2.5); Eosinophils # (Auto) 0.0 Thou/mm3 (0.0-0.5); Eosinophils % (Auto) 0 % (0-10); Hematocrit 39.9 % (36.0-46.0); Hemoglobin 12.3 g/dL (12.0-16.0); Immature Granulocytes Auto 0.03 Thou/mm3 (0.00-0.00); Lymphocytes # (Auto) 2.2 Thou/mm3 (1.0-4.8); Lymphocytes % (Auto) 20 % (10-50); Mean Corpuscular HGB Conc 30.8 g/dl (31.0-37.0); Mean Corpuscular Hemoglobin 28.3 pg (25.0-35.0); Mean Corpuscular Volume 92 fL (80-100); Monocytes # (Auto) 0.7 Thou/mm3 (0.0-0.8); Monocytes % (Auto) 7 % (0-12); Neutrophils # (Auto) 8.1 Thou/mm3 (1.8-7.7); Neutrophils % (Auto) 73 % (37-80); Nucleated Red Blood Cell # 0.00 Thou/mm3 (0.00-0.00); Nucleated Red Blood Cell % 0 /100 WBC (0); Platelet Count 210 Thou/mm3 (140-440); RDW Standard Deviation 46.5 fL (36.4-46.3); Red Blood Count 4.35 Miln/mm3 (4.00-5.20); White Blood Count 11.1 Thou/mm3 (3.6-11.0)
[2025-06-25] MEDS: guaiFENesin/DM 10 ML UDC PO ×2 (05:41→11:41)
[2025-06-25] MEDS: HEPARIN SOD INJ 5000 UNIT/ML VIAL SC (05:41)
[2025-06-25] MEDS: LEVOTHYROXINE SODIUM 100 MCG TABLET PO (05:41)
[2025-06-25 05:56] LABS: Alanine Aminotransferase 21 U/L (10-49); Albumin, Serum 3.9 gm/dL (3.4-4.8); Albumin/Globulin Ratio 1.4 (1.2-2.2); Alkaline Phosphatase 77 U/L (46-116); Anion Gap 8 (7-16); Aspartate Amino Transferase 20 U/L (0-34); BUN/Creatinine Ratio 26 Ratio (12-20); Bilirubin,Total 0.2 mg/dL (0.3-1.2); Blood Urea Nitrogen 21 mg/dL (9-23); Calcium 8.9 mg/dL (8.3-10.6); Calcium (Corrected) 9.0 mg/dL (8.5-10.1); Carbon Dioxide 36.8 mMol/L (20.0-31.0); Chloride 97 mMol/L (98-107); Creatinine (Component) 0.8 mg/dL (0.6-1.3); Estimated Creatinine Clearance 89.6 mL/min (>60); Globulin 2.8 gm/dL (2.3-3.5); Glucose 127 mg/dL (74-106); Magnesium 2.1 mg/dL (1.6-2.6); Osmolality,Calculated 288 (275-295); Phosphorous 3.5 mg/dL (2.4-5.1); Potassium 3.8 mMol/L (3.4-5.1); Sodium 142 mMol/L (136-145); Total Protein 6.7 gm/dL (5.7-8.2); eGFR > 60 See Note
--- NOTE | 2025-06-25 10:24 | PC.SS ---
OXYGEN Pt is discharged in a chronic stable state and has been treated optimally and has other respiratory needs.? Oxygen has been ordered due to Acute Hypoxic Respiratory Failure.
--- NOTE | 2025-06-25 10:49 | PC.NURSE ---
Patient at 84% room air at rest. Currently on 3L NC spo2 at 94%.
--- NOTE | 2025-06-25 11:14 | PC.SS ---
SS has met with pt provide her with verbal options for DME to order home O2. Pt is aware of the accepting DME companies. Patient's choice is [facility] due to being local. SS has provided pt with [employer]. SS has sent DME order to [facility] using [employer] and has sent through [employer] Fax.
--- NOTE | 2025-06-25 11:26 | PC.SS ---
SS met with patient regarding her d/c plan. Pt is alert/oriented. Pt was admitted for SOB. Pt confirmed demographic and contact information is correct on facesheet. Pt resides with . Pt ambulates independently without assistance or DME. Pt is ok with all ADLs. Patient?s pharmacy of choice is [facility]. Pt named her , Desmond De La Cruz medical decision maker if she is unable. SS provided verbal choices for d/c to home or SNF. Patient?s choice is to return home upon d/c. Pt states she is not diabetic and is not on dialysis. Pt followed up with PCP last week. will provide transportation home. D/C plan: Return home Next of Kin: Desmond De La Cruz, , phone# [phone] PCP: Dr. Kelsi Dwyer Address: Correct on facesheet
--- NOTE | 2025-06-25 11:42 | PC.PT ---
PT james received. Attempt to see the patient at 1130. Patient states she just got back to bed. Patient states she is ok to walk, its the coughing that is hard for her whenever she moves. She was able to go to restroom earlier. She is aware she is going to be dc today and that she said can walk. No need for PT. She has questions about how to use O2 at home and this PT explained it to her. This PT also informed the patient that patient will be given DC instructions prior to go home about O2 use. Patient verbalized understanding. Informed the ordering physician. Will cance PT evaluation.
--- NOTE | 2025-06-25 13:40 | ESDS_ITS ---
<Statement entered by Joshua Chou MD - 06/26/25 05:52> I saw and examined patient personally and supervised PGY 1 resident, Dr. Lopez with formulating a discharge plan. I agree with the documentation as listed below. Plan of care discussed with Attending Dr. Ilan Chou MD PGY 2 Disclaimer: This note was dictated by speech recognition. Minor errors in inspector cold working may be present due to voice recognition software. Planned Discharge Date 06/25/25 DS: Providers Provider Date of admission: 06/23/25 13:09 Primary care physician: Kelsi Dwyer MD Admitting Provider: Becky Talavera MD Attending Provider on Admission: Becky Talavera MD Consults: 06/23/25 17:22 Referral Registered Dietitian Routine Comment: Attending Provider on DC: Becky Talavera MD Discharging Provider: Becky Talavera MD DS: Diagnosis Problem List Completed Was Problem List Reviewed/Reconciled?: Yes Hospital Course Hospital Course Hospital course: 70-year-old female with significant past medical history of asthma, hypertension, hyperlipidemia, hypothyroidism presented to ED on 06/23/2025, with chief complaint of worsening of SOB. Patient admitted for acute hypoxic respiratory failure secondary to asthma exacerbation secondary to RSV infection. ED course: CXR was negative for pneumonia. Influenza A/B tests were negative, while RSV was positive. Upon admission, the patient?s O2 saturation was 78%, and they were started on nasal cannula. O2 saturation was 93% on 5L NC. Notable labs include WBC 7.6, sodium 139, creatinine 1.0, LFT within normal range, Pro-Jean negative. Hospital course: Patient was admitted for further management of acute hypoxic respiratory failure, secondary to an asthma exacerbation due to the RSV infection. ECHO done 06/23/2025 that shows normal LV with EF 50-55%. Treatment included DuoNeb and IV methylprednisolone. Patient required O2 supplementation with nasal cannula. At time of discharge patient is progressing towards baseline but has been discharged on home O2, new inhaler, nebulizers, guaifenesin for managing cough, and 3 more days of steroids. Discharge instructions: - You have been started on a new inhaler, Fluticasone/Vilanterol. Take 1 puff every day. ? You have been started on steroids. Start from 06/25 to complete 3 more days. ? You have been started on guaifenesin for your cough. Wear a mask around people for at least 5 days - You have been started on as needed home oxygen ? Continue your home medication as before ? We recommend you get pulmonary function tests as outpatient, ask your PCP. - Follow up with your primary care physician within 1 week of discharge. If you do not have a primary care physician, please follow up with the [facility] Residents clinic ([phone]) ? If you experience any new, worsening or persistent symptoms either call your primary doctor, or dial 911 or present to the emergency department. Admission diagnoses: #Acute hypoxic respiratory failure secondary to #Asthma exacerbation and #RSV infection #Hx of Hypothyroidism #Hx of HTN #Hx of HLD Case discussed with my attending Dr. Talavera, and senior resident, Dr. José Antonio Lopez MD PGY-1 Status at Discharge Overall status at discharge: patient is progressing back to baseline Time Spent with Patient Time attestation: Total time spent providing and/or coordinating discharge services: 33 minutes Time spent: Greater than 30 minutes Exam Vital Signs Temp Pulse Resp BP Pulse Ox O2 Del Method O2 Flow Rate 98.0 F 97 21 H 132/78 H 90 L Nasal Cannula 3 06/25/25 12:06/25/25 12:04 06/25/25 12:04 06/25/25 12:06/25/25 12:04 06/25/25 12:06/25/25 12:04 Narrative Exam General: A/O x3, no acute distress, well-nourished, well-developed Eyes: PERRL, EOMI. Anicteric, vision grossly intact. Ears: No ear pain, no ear discharge, Hearing grossly intact. Nose: Signficant nasal discharge. Mouth/Throat: Moist mucous membranes, no redness, no lesions. Neck: Neck supple, non-tender, no cervical lymphadenopathy. Lungs: bilateral wheezing but improved from before, No accessory muscle use. Cardio: Normal S1/S2, regular rhythm, no murmurs, no JVD or carotid bruits. Abdomen: Soft, non-tender, no palpable masses, peristalsis present, no guarding or rebound. Extremities: Symmetrical, no significant deformities, no peripheral edema , non-tender, peripheral pulses present. Skin: No rashes, no lesions, warm to touch. Neuro: No focal neurological deficits. Psych: Cooperative, appropriate mood and effect Discharge Plan Plan Patient Disposition: HOME (Self Care) Patient condition on transfer: Stable and Benefits outweigh risks Care Plan Goals: - You have been started on a new inhaler, Fluticasone/Vilanterol. Take 1 puff every day. ? You have been started on steroids. Start from 06/25 to complete 3 more days. ? You have been started on guaifenesin for your cough. Wear a mask around people for at least 5 days - You have been started on as needed home oxygen ? Continue your home medication as before ? We recommend you get pulmonary function tests as outpatient, ask your PCP. - Follow up with your primary care physician within 1 week of discharge. If you do not have a primary care physician, please follow up with the [facility] Residents clinic ([phone]) ? If you experience any new, worsening or persistent symptoms either call your primary doctor, or dial 911 or present to the emergency department. Prescriptions/Referrals Prescriptions/Med Rec: New dextromethorphan-guaifenesin 10-100 mg/5 mL Syrup 10 ml PO QID 14 Days Qty: 560 0RF prednisone 50 mg tablet 50 mg PO QDAY 3 Days Qty: 3 0RF Rx Instructions: to start on 06/25 to complete a total of a 5 day course. Received 2 days in hospital omeprazole 40 mg capsule,delayed release(DR/EC) 40 mg PO QDAY Qty: 7 0RF fluticasone furoate-vilanterol 50-25 mcg/dose blister with device 1 inh inhalation QDAY 30 Days Qty: 60 2RF (DME) Space Chamber Spacer See Rx Instructions .Route Qty: 1 0RF Rx Instructions: As directed albuterol sulfate 1.25 mg/3 mL solution for nebulization 1.25 mg inhalation QID MDD 4 PRN (Reason: shortness of breath or wheezing) Qty: 75 0RF (DME) nebulizers [AeroEclipse II Nebulizer] [facility] [place] See Rx Instructions .Route Qty: 1 0RF Rx Instructions: As directed Continued simvastatin [Zocor] 10 MG tablet 10 mg PO HS Qty: 0 Fluticasone Propionate NASAL * (FLONASE *) 160 SPRAY/BTL SPRAY 1 spry NASAL BID Qty: 0 Levothyroxine * (SYNTHROID *) 100 MCG tablet 100 mcg PO HS Qty: 0 albuterol sulfate [ProAir HFA] 8.5 GM HFA aerosol inhaler 1 - 2 puff Inhalation Q6HR PRN (Reason: WHEEZING) Qty: 1 0RF Rx Instructions: Please give and use spacer celecoxib 200 mg capsule 200 mg PO BID tizanidine 2 mg tablet 2 mg PO PRN losartan-hydrochlorothiazide 100-25 mg tablet 1 tab PO HS Patient Comments: TAKE 1 TABLET BY MOUTH DAILY Restasis MultiDose 0.05 % drops 1 drp ophthalmic (eye) Q12H benzonatate 200 mg capsule 200 mg PO Q8HR PRN (Reason: persistent cough) Referrals: Kelsi Dwyer MD [Primary Care Provider, Family Practice] Patient/Caregiver Discharge Instructions Education Materials: Caring for Your Inhaler, Using an Inhaler with a Spacer, Controlling Asthma Triggers ..., Asthma Action Plan, Controlling Asthma Triggers Animals, Asthma Trigger Checklist, Asthma in Older Adults, Asthma and Exercise Print Language: Korean Stand Alone Forms: Trang Award Info., Patient Portal Info Letter Discharge Order Discharge Orders: Discharge (Routine); Ordered 06/25/25 Ordered By: Joshua Chou Quality Discharge Quality Measures VTE prophylaxis MD Attestestation MD Attestation I have seen and examined the patient. I was physically present for the patel portions of the services provided including history, physical exam, diagnosis, treatment plans and orders. I agree with assessment and plan of care as documented by residents. Even though this this note was carefully revised there may still be minor errors in inspector cold working due to voice recognition software. Becky Talavera MD
[2025-06-25] MEDS: SALINE NASAL 45 ML BTL 1 SPRAY NASAL (13:53)
== END 2025-06-25 15:33 | disposition home or self-care (01) | DRG 202 ==
LOC: SERX 13:41 → SERHOLD 13:54 → S2NX 16:44 → S3NX 06-25 09:10
PROVIDERS: Admitting Provider Student in an Organized Health Care Education/Training Program; Emergency Provider Family Medicine; PCP Family Medicine; Visit Provider Student in an Organized Health Care Education/Training Program
DX: J45.901 Unspecified asthma with (acute) exacerbation (principal); J96.01 Acute respiratory failure with hypoxia; E78.5 Hyperlipidemia, unspecified; I10 Essential (primary) hypertension; E03.9 Hypothyroidism, unspecified; B97.4 Respiratory syncytial virus as the cause of diseases classified elsewhere; Z96.642 Presence of left artificial hip joint; Z79.890 Hormone replacement therapy
CPT/HCPCS: 36415; 36600; 71045; 80053; 80061; 82803; 83605; 83735; 83880; 84100; 84145; 84484; 85025; 85379; 85610; 85730; 86331; 86635; 87502; 87634; 87635; 93005; 93306; 94640; 94644; 94667; 99284; A9270; J1644; J1938; J2919; J3475